=== PATIENT | female | born 1965 | race Caucasian/White ===

== ENCOUNTER 2016-10-23 12:48 | Inpatient (IN) | payer SELFPAY ==
[2016-10-23] MEDS ORDERED: Ondansetron INJ* 2 MG/ML VIAL IV ONE (16:47)
[2016-10-23] MEDS ORDERED: Morphine INJ* 4 MG/ML 1 ML SYRINGE IV ONE ×2 (16:47→19:20)
[2016-10-23 17:16] LABS: Hematocrit 34 % (35-47); Hemoglobin 10.6 g/dl (12.0-16.0); Mean Corpuscular HGB Conc 31 g/dl (31-36); Mean Corpuscular Hemoglobin 22 pg (27-31); Mean Corpuscular Volume 70 fL (80-97); Mean Platelet Volume 8 um3 (7.4-10.4); Red Blood Count 4.82 10^6/ul (4.0-5.4); Red Cell Distribution Width 22 % (10.5-15); White Blood Count 10.9 10^3/ul (3.5-10.8)
[2016-10-23 17:17] LABS: Add Diff/Slide Review? Manual Diff Added; Comments Flag Yes
[2016-10-23 17:35] LABS: ALT 8 U/L (7-52); Albumin 3.6 g/dL (3.2-5.2); Alkaline Phosphatase 67 U/L (34-104); BUN/Creatinine Ratio 15.6 (8-20); Blood Urea Nitrogen 10 mg/dL (6-24); C Reactive Protein < 1.00 mg/L (< 5.00); CO2 Carbon Dioxide 25 mmol/L (22-32); Chloride 104 mmol/L (101-111); EGFR African American 126.3 (>60); EGFR Non-African American 98.2 (>60); Globulin 3.5 g/dL (2-4); Glucose 91 mg/dL (70-100); Lipase 49 U/L (11.0-82.0); Sodium 136 mmol/L (133-145); Total Protein 7.1 g/dL (6.4-8.9)
[2016-10-23 17:36] LABS: Troponin I 0.01 ng/mL (<0.04)
[2016-10-23 17:40] LABS: Anion Gap 7 mmol/L (2-11)
[2016-10-23] MEDS ORDERED: Iodixanol* (CONTRAST) 320 MG/ML 100 ML SDV IV ONE (17:42)
--- NOTE | 2016-10-23 18:55 | RAD ---
CLINICAL HISTORY: Abdominal pain x1 week. Relevant surgical history includes cholecystectomy, hysterectomy and partial nephrectomy. COMPARISON: None TECHNIQUE: Contrast enhanced CT examination of the abdomen and pelvis from the lung bases through the initial tuberosities. The patient received 80 mL Visipaque 320 intravenously prior to imaging.The patient received oral contrast as well prior to imaging. FINDINGS: VISUALIZED LUNG BASES: The visualized lung bases are grossly clear. There is no pleural effusion. ABDOMEN AND PELVIS: The liver, spleen and adrenal glands are grossly normal in appearance. The pancreatic duct is prominent but not pathologically dilated. The pancreas is otherwise normal in attenuation. The gallbladder is surgically absent with clips in the gallbladder fossa. The kidneys are normal in appearance without focal mass, calcification or signs of hydronephrosis. Aside from a small amount of cortical irregularity along the posterior mid level margin of the left kidney (coronal image 55 was (there is no evidence of nephrectomy. Surgical material adjacent to the gastric fundus is consistent with the patient's reported history of gastric bypass surgery. There is no leakage of oral contrast into the lesser omentum. Neural contrast has progressed as far as the proximal small bowel. There are loops of small bowel that are top normal in diameter measuring up to 3 cm. (Axial image 68). More distally the loops of bowel are fluid-filled. The gas and stool-filled colon is unremarkable. There is contrast in the rectum, presumably from prior oral contrast administration in the recent past. There is no gross retroperitoneal or mesenteric lymphadenopathy. The uterus is surgically absent. The abdominal aorta and iliac arteries are normal in course and diameter. Degenerative changes include multilevel loss of intervertebral disc height involving the lower thoracic and lumbar spine.There are no sinister bone lesions. IMPRESSION: 1. Top normal dilated loops of small bowel at the low midline abdomen could be seen in the setting of ileus versus partial small bowel obstruction. A definite transition point is not identified. 2. There is no definite leak of oral contrast. If there is suspicion for anastomotic leak then this is better evaluated with gastroesophageal. 3. Contrast seen in the rectum is relatively is from prior recent imaging. Please correlate to the patient's medical history. 4. Additional chronic, degenerative and iatrogenic findings described in the body the report.
[2016-10-23 18:58] LABS: Immature Granulocytes 6 % (0-9); Microcytosis 1+; Neutrophil % 70 % (38-83)
[2016-10-23 18:59] LABS: Hypochromasia 2+
[2016-10-23 19:01] LABS: Add Path Review? YES
[2016-10-23] MEDS ORDERED: Aspirin Low Dose CHEW TAB* 81 MG PO ONE (19:24)
[2016-10-23] MEDS ORDERED: Pantoprazole IV* 40 MG IV ONE (20:07)
[2016-10-23] MEDS ORDERED: Sucralfate TAB* 1 GM PO ONE (20:07)
--- NOTE | 2016-10-23 21:23 | RAD ---
INDICATION: Abdominal pain x1 week COMPARISON: CT of the abdomen and pelvis from the same date TECHNIQUE: 2 views the abdomen were obtained. FINDINGS: There is contrast seen in the distal portion of the colon and rectum as well as contrast in the distal small bowel and cecum. Similar to the previous CT examination, there is gas-filled dilated loops of small bowel measuring 3.2 cm in diameter in the low midline abdomen. Standing images do not reveal any free peritoneal gas beneath the diaphragm. Excreted contrast from the patient's recent CT examination is seen in the collecting system and urinary bladder. IMPRESSION: AIR-FILLED DILATED LOOPS OF SMALL BOWEL TO 3.2 CM IN DIAMETER DESCRIBED ABOVE.
[2016-10-23] MEDS: NS 0.9% 1000 ML* 1,000 ML IV SCH (22:39)
[2016-10-23] MEDS: KCL 20 MEQ/100 ML IVPREMIX* 20 MEQ/100 ML BAG IV SCH (22:45)
[2016-10-23] MEDS: Morphine INJ* 4 MG/ML 1 ML SYRINGE IV PRN (23:06)
--- NOTE | 2016-10-24 00:58 | HP ---
CC: Dr. Saldivar * [facility] MEDICINE HISTORY AND PHYSICAL: DATE OF ADMISSION: 10/23/16 PRIMARY CARE PHYSICIAN: Dr. Saldivar. ATTENDING PHYSICIAN: Meche García MD * (DICTATED BY TOSHIA MAXWELL NP) CHIEF COMPLAINT: Abdominal pain. HISTORY OF PRESENT ILLNESS: Ms. Zaldivar is a 51-year-old female with a history of multiple abdominal surgeries including cholecystectomy, hysterectomy, partial nephrectomy for kidney cancer, gastric bypass and two C-sections, who presented to the hospital today with concern for abdominal pain. Ms. Zaldivar states that she began to have some pain in her left upper quadrant radiating into her stomach aproximately a month ago. The pain was not very severe at that point; however, over the past week to 10 days, she again developed this pain and it is now much more severe. Today, the pain was quite intense and was associated with nausea, vomiting, and diarrhea, and therefore she decided to come to the emergency room for evaluation. She denies any fever, chills, cough , chest pain, shortness of breath. Her last episode of nausea with vomiting was this morning and her last episode of diarrhea was at noon today. In the emergency room, Ms. Zaldivar had a white blood cell count that was essentially normal at 10.9. Her bands are elevated at 6. Potassium is slightly low at 3.1. Troponin is 0.01. She did go on for an abdomen and pelvis CT, which is read as follows: "Top normal dilated loops of small bowel at the low midline abdomen could be seen in the setting of ileus versus partial small bowel obstruction. A definite transition point is not identified. There is no definite leak of oral contrast. There is suspicion for anastomotic leak, this is verified with gastroesophageal. Contrast seen in the rectum was relatively prior to recent imaging. Please correlate to patient's medical history." Patient states that her last CT scan of the abdomen was likely about a month ago but she believes that there was no contrast used at that time. PAST MEDICAL HISTORY: Cholecystectomy, hysterectomy, partial nephrectomy due to kidney cancer, gastric bypass surgery, history of two C-sections, tonsillectomy. Patient reports that she normally seeks medical care at [facility] in [place]. MEDICATIONS: Pepto-Bismol p.r.n. ALLERGIES: To SULFA. FAMILY HISTORY: The patient reports her mother related to colon cancer and father related to Alzheimer's disease. SOCIAL HISTORY: The patient is a current smoker. She smokes about 5 to 6 cigarettes per day over the past week as she has not been feeling well. No report of alcohol or drug use. She lives with her , who is the healthcare proxy. REVIEW OF SYSTEMS: A 14-point review of systems was completed with Ms. Zaldivar and all those not mentioned above were negative. PHYSICAL EXAMINATION GENERAL: Ms. Zaldivar is sitting in the bed. She is in no acute distress. VITAL SIGNS: Temperature 99, heart rate 73, respiratory rate 16, O2 saturation 97% on room air, blood pressure 142/67. LUNGS: Clear to auscultation bilaterally with no accessory muscle use and good aeration. HEART: S1, S2. No murmur, rub, or gallop, and regular. ABDOMEN: Soft, nontender, with bowel sounds positive x4. EXTREMITIES: No cyanosis or edema. NEURO: She is alert, she is oriented x3. She moves all extremities equally. There is no facial asymmetry or focal weakness. Extraocular movements are intact. SKIN: Intact. DIAGNOSTIC STUDIES/LAB DATA: White blood cell count 10.9, hemoglobin 10.6, hematocrit 34, platelet count 361. Sodium 136, potassium 3.1, chloride 104, serum bicarbonate 25, BUN 10, creatinine 0.64, glucose 91. Abdomen and pelvis CT is as read per above in the HPI and EKG shows sinus rhythm with a heart rate in the 70s and no evidence of ischemia. ASSESSMENT AND PLAN: Ms. Zaldivar is a 51-year-old female with multiple past surgeries on the abdomen including cholecystectomy, hysterectomy, and partial nephrectomy for kidney cancer, gastric bypass, and . Our plans are for observation in the hospital overnight for the followin. Abdominal pain: I suspect that perhaps her abdominal pain is related to an ileus versus early partial small bowel obstruction. I do not see evidence of an alternate process to explain her symtoms. Her LFTs are normal. Her CRP and WBC are normal. Plans for her to have ice chips overnight and we will repeat x -ray of the abdomen in the morning. She is to be encouraged to ambulate frequently on the unit to encourage bowel motility. She will have pain medications p.r.n. 2. Hypokalemia. Plan to replete and recheck in the a.m. 3. DVT prophylaxis. With early mobility. 4. Disposition: To medical floor. TIME SPENT: Approximately 60 minutes was spent on the admission of this patient , more than half the time was spent with the patient at the bedside reviewing the events leading up to this hospitalization, performing the physical examination, and reviewing the plan of care. TOSHIA MAXWELL NP [id number]/[facility] #: [id number] ARMIDA
[2016-10-24] MEDS: KCL 20 MEQ/100 ML IVPREMIX* 20 MEQ/100 ML BAG IV SCH (01:05)
[2016-10-24] MEDS: Ondansetron INJ* 2 MG/ML VIAL IV PRN ×3 (02:41→18:12)
[2016-10-24] MEDS: Morphine INJ* 4 MG/ML 1 ML SYRINGE IV PRN ×5 (02:58→22:42)
[2016-10-24 06:10] LABS: Hematocrit 30 % (35-47); Hemoglobin 9.3 g/dl (12.0-16.0); Mean Corpuscular HGB Conc 31 g/dl (31-36); Mean Corpuscular Hemoglobin 22 pg (27-31); Mean Platelet Volume 8 um3 (7.4-10.4); Red Blood Count 4.22 10^6/ul (4.0-5.4); Red Cell Distribution Width 22 % (10.5-15); White Blood Count 7.7 10^3/ul (3.5-10.8)
[2016-10-24 06:22] LABS: Comments Flag Yes; Mean Corpuscular Volume 70 fL (80-97)
[2016-10-24 06:28] LABS: Anion Gap 3 mmol/L (2-11); BUN/Creatinine Ratio 17.2 (8-20); Blood Urea Nitrogen 11 mg/dL (6-24); CO2 Carbon Dioxide 27 mmol/L (22-32); Calcium 8.5 mg/dL (8.6-10.3); Chloride 106 mmol/L (101-111); EGFR African American 126.3 (>60); EGFR Non-African American 98.2 (>60); Glucose 86 mg/dL (70-100); Potassium 3.5 mmol/L (3.5-5.0); Sodium 136 mmol/L (133-145)
[2016-10-24] MEDS: Pantoprazole IV* 40 MG IV SCH (07:23)
--- NOTE | 2016-10-24 08:05 | RAD ---
Indication: Abdominal pain with clinical concern for small bowel obstruction. Post cholecystectomy, partial LEFT nephrectomy, gastric bypass, hysterectomy. Comparison: October 23, [address] Technique: Supine view of the abdomen. Report: No persistent dilated small bowel loops evident. Further distal propagation of the enteric contrast entirely located within the colon. Negative for colonic dilatation or other radiographic abnormality. Suture lines at the LEFT upper quadrant corresponding with history of gastric bypass. Surgical clips at the gallbladder fossa and RIGHT lower quadrant. Interval clearing of pyelographic phase contrast from the intrarenal collecting systems. Persistent pyelographic phase contrast in the largely decompressed urinary bladder. No suspicious calcifications or mass effect. IMPRESSION: Negative for bowel obstruction. No acute abdominal pelvic pathologic process evident.
[2016-10-24 09:18] LABS: Urine Bilirubin Negative (Negative); Urine Glucose Negative (Negative); Urine Nitrite Negative (Negative)
[2016-10-24 09:25] LABS: Urine Bacteria 1+ (Absent)
--- NOTE | 2016-10-24 10:04 | PN ---
Subjective Date of Service: 10/24/16 Interval History: Patient seen and examined at bedside. She reports mild improvement in abd pain but persistent nausea. Last BM was yesterday morning, states it was diarrhea. Patient reports last normal BM was 2 days. Abdominal pain located in the mid abdomen and radiates to back, intermittent. Denies CP, SOB. Wants to try clear liquids. Denies fever/chills. Family History: Unchanged from Admission Social History: Unchanged from Admission Past Medical History: Unchanged from Admission Objective Active Medications: Sodium Chloride (Ns 0.9% 1000 Ml*) 1,000 mls @ 75 mls/hr IV PER RATE [facility] Last Admin: 10/23/16 22:39 Dose: 75 mls/hr Morphine Sulfate (Morphine Inj (Syringe)*) 4 mg IV Q4H PRN PRN Reason: PAIN Last Admin: 10/24/16 07:23 Dose: 4 mg Ondansetron HCl (Zofran Inj*) 4 mg IV Q4H PRN PRN Reason: NAUSEA Last Admin: 10/24/16 02:41 Dose: 4 mg Pantoprazole Sodium (Protonix Iv*) 40 mg IV Q24H [facility] Last Admin: 10/24/16 07:23 Dose: 40 mg Vital Signs 10/23/16 10/23/16 10/23/16 21:00 22:10 23:06 Temperature 98.1 F Pulse Rate 66 68 Respiratory 18 16 Rate Blood Pressure 143/74 120/72 (mmHg) O2 Sat by Pulse 95 98 Oximetry 10/24/16 10/24/16 10/24/16 00:06 02:57 02:58 Temperature 98.1 F Pulse Rate 63 Respiratory 16 16 16 Rate Blood Pressure 126/73 (mmHg) O2 Sat by Pulse 94 Oximetry 10/24/16 10/24/16 10/24/16 03:58 07:23 07:28 Temperature 97.5 F Pulse Rate 66 Respiratory 14 14 18 Rate Blood Pressure 122/75 (mmHg) O2 Sat by Pulse 95 Oximetry 10/24/16 10/24/16 08:00 08:23 Temperature Pulse Rate Respiratory 14 14 Rate Blood Pressure (mmHg) O2 Sat by Pulse Oximetry Oxygen Devices in Use Now: None Appearance: Middle aged female, lying in bed, in NAD Eyes: No Scleral Icterus Ears/Nose/Mouth/Throat: Clear Oropharnyx, Mucous Membranes Moist Neck: NL Appearance and Movements; NL JVP Respiratory: Symmetrical Chest Expansion and Respiratory Effort, Clear to Auscultation Cardiovascular: NL Sounds; No Murmurs; No JVD, RRR Abdominal: - - BS x 4, diffuse tenderness to mid and upper abdomen Extremities: No Edema Neurological: Alert and Oriented x 3 Lines/Tubes/Other Access: Clean, Dry and Intact Peripheral IV Nutrition: Taking PO's Result Diagrams: 10/24/16 05:44 10/24/16 05:45 Assess/Plan/Problems-Billing Assessment: Ms. Zaldivar is a 51 yo female with a PMH of gastric bypass and multiple abdominal surgeries who presents today with abd pain. - Patient Problems (1) Abdominal pain Code(s): R10.9 - UNSPECIFIED ABDOMINAL PAIN Comment: Unclear etiology, previous concern for SBO, though KUB this AM is improved BS present, less concern for ileus (also no identifiable cause for ileus) Patient has hx of gastric bypass, cholecystectomy, hysterectomy, , and partial nephrectomy. Possibility of structural issue given extensive abd surgeries. Surgery consult requested Patient asked for clears, will attempt to advance to clears Continue prn analgesia, anti-emetics (2) Hypokalemia Code(s): E87.6 - HYPOKALEMIA Comment: Resolved Suspect secondary to diarrhea (3) DVT prophylaxis Comment: Encourge early ambulation Status and Disposition: OBV admit.
[2016-10-24 10:37] LABS: C Reactive Protein < 1.00 mg/L (< 5.00); Lipase 48 U/L (11.0-82.0)
[2016-10-24] MEDS: oxyCODONE/Acetamin 5/325 MG* TAB PO PRN ×3 (10:43→20:56)
--- NOTE | 2016-10-24 12:41 | PN ---
Progress Note - Progress Note Date of Service: 10/24/16 Note: Brief Surgery Note (full note dictated; patient seen with and examined by Dr. Bonilla): S: 2-4 wks of progressively worsening upper abd pain w/ assoc N & V and anorexia O: Afeb; VSS Abd: BS+; soft w/ moderate tenderness throughout upper abd, hang LUQ; no peritoneal signs Labs reviewed CT A&P as well as AXR from this a.m. reviewed A: abd pain; poss PUD vs pSBO 2/2 internal hernia P: UGI today; will add carafate to current PPI; poss OR 10/25 for diagnostic laparoscopy w/ Dr. Bonilla
[2016-10-24] MEDS: Sucralfate TAB* 1 GM PO SCH ×3 (13:56→20:56)
--- NOTE | 2016-10-24 14:00 | RAD ---
CPT II Codes: 6045F. Indication: Abdominal pain. Fluoroscopic and radiographic examination of the upper GI tract was performed. 0.8 minutes of fluoroscopy time was used. Esophagus appears normal in anatomy and function. No evidence of stricture is noted. The patient status post gastric bypass surgery. No obstruction is noted. No evidence of ulceration noted. IMPRESSION: Patient status post gastric bypass surgery. No evidence of ulcers or masses are noted in the gastric remnant.
--- NOTE | 2016-10-24 19:21 | CONS ---
CC: Dr. Mo Bradley, [place], [place]. * SURGICAL CONSULTATION NOTE: DATE OF CONSULT: 10/24/16 ATTENDING SURGEON: Dr. Richardson Bonilla. (DICTATED BY JUAN COYNE) PRIMARY CARE PROVIDER: Dr. Bradley [place]. CHIEF COMPLAINT: Abdominal pain HISTORY OF PRESENT ILLNESS: This is a 51-year-old female admitted last evening through the ED with a 2- to 4-week history of gradually progressing upper abdominal pain. She states at first that the pain has been present for a couple of weeks, but then does admit to having been seen in consultation at the [place] [facility] about a month for similar albeit milder symptoms. She states that a CT without oral contrast was performed at that time. She describes pain in the upper mid abdomen radiating to the left upper quadrant to the mid abdomen and through to her back and between her shoulder blades. She describes the pain as stabbing and previously intermittent, but now pretty much constant. There were times when it is exacerbated by eating or drinking but other times not. She notes that the nausea has been present for the past few days and she has had some small amounts of vomiting. Pain at its peak has been between 9 and 10/10 and at present is 7 to 8. Her bowels have been notable for loose watery stools in the past few days though no blood. She has not had any previous episodes of similar pain. She did undergo a laparoscopic gastric bypass about 18 years ago. She has also had other surgeries as noted below. She denies fever or chills. She denies shortness of breath, though pain is exacerbated with deep inspiration. PAST MEDICAL HISTORY: Morbid obesity (she was just below 400 pounds prior to gastric bypass and has since maintained fairly level weight). She has environmental allergy. She has been treated with surgery, radiation therapy, and chemotherapy for endometrial cancer also approximately 18 years ago with no evidence of recurrence. She underwent partial left nephrectomy for renal cell carcinoma about 3 years ago. She denies history of other cardiovascular disease, diabetes, history of bleeding or clotting disorders. PAST SURGICAL HISTORY: As noted laparoscopic Chevy-en-Y gastric bypass, open hysterectomy with bilateral salpingo-oophorectomy for endometrial cancer, laparoscopic cholecystectomy (preceding her bypass), x2, tonsillectomy remotely, partial left nephrectomy. No reported surgical or anesthesia complications. CURRENT MEDICATIONS: 1. Xyzal 5 mg once daily. 2. She had also been using some Tums and/or Pepto-Bismol or other acid blockers in recent weeks, initially with some improvement and more recently without improvement in her acute symptoms. DRUG ALLERGIES: SULFA (hives). FAMILY HISTORY: Notable for colon cancer in her mother and multiple additional family members. There is additional breast cancer history on her father's side. There is no family history of anesthesia problems. SOCIAL HISTORY: The patient is . 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 She is a current smoker, one-half pack for 10 years, and we strongly encouraged her to stop. She denies use of alcohol or other recreational drugs. REVIEW OF SYSTEMS: General: No recent constitutional symptoms or acute illnesses other than described in the HPI. She is not specifically aware of additional weight loss in recent months. She has not had any significant problems with weight regain since her bypass. Of note, she does not see the bariatric program any longer nor does she take any supplements nor has she had regular surveillance lab work. It is mentioned to her that she has what appears to be iron deficiency anemia (microcytic and should have a bariatric profile done in the near future and annually thereafter through her PCP office) . Cardiovascular: No chest pain, palpitations, history of hypertension, OK, angina, or heart murmur. Respiratory: No history of asthma, chronic cough, or shortness of breath. Environmental allergies only. GI: As above per HPI. Colonoscopy done approximately 5 years ago which she states was a normal study with recommended 5-year followup and no significant interval symptoms. : No problems reported. HEALTH AND NUTRITION SPECIALIST: No recent problems reported. Pelvic exam, most recent breast exam and mammogram within the past year and a half reportedly normal. Endocrine: No diabetes or thyroid dysfunction. PHYSICAL EXAM: Height 5 feet 5 inches, weight 145 pounds, BMI 24, temperature 97.5, blood pressure 122/75, pulse 66, respirations 18, room air saturation 95% . General: Well-nourished, well-developed female in no acute distress. She appeared mildly uncomfortable at times lying in bed. Skin: Warm and dry. No suspicious rashes or lesions noted. HEENT: Pupils equal, round, and reactive. EOMs intact. Mild conjunctival pallor. No scleral icterus. Oropharynx. Mucous membranes moist. No intraoral lesions. Neck: No lymphadenopathy, thyromegaly, or masses. Heart: Regular rate and rhythm. No murmur noted. Lungs: Clear to auscultation. No rales or wheezes. Abdomen: Bowel sounds present, though somewhat hypoactive. Well-healed surgical scars. Nondistended, soft with [id number] tenderness in the epigastric region and left upper quadrant but extending to the periumbilical region as well. No peritoneal signs. No rebound. No palpable masses or organomegaly. Genitalia and Rectal: None. Back: No spinous process or CVA tenderness. Extremities: No edema. Dorsalis pedis and posterior tibial pulses are palpable bilaterally. Musculoskeletal: No problems noted. Neuropsych: Grossly intact. DIAGNOSTIC STUDIES/LAB DATA: Of note, CBC showed white blood cell count of 10, 900 with repeat 7700, hemoglobin 10.6 with repeat 9.3, indices show microcytic hypochromic anemia. The P3 is essentially normal on today's exam. Comprehensive profile last evening was essentially normal including the normal lactic acid, normal lipase, and a CRP less than 1. CT scan of the abdomen and pelvis with oral and IV contrast was reviewed as well as the plain films from this morning. There are some dilated small bowel loops present up to a diameter of 3 cm though on today's films contrast is present throughout the colon. There is no free air or extraluminal collections. IMPRESSION: Abdominal pain, rule out peptic ulcer disease. Consideration must also be given for internal hernia after her bypass surgery. She is already on PPI. Sucralfate will be added to her regimen and if the upper GI is unrevealing and she continues having significant pain, consideration will be given to diagnostic laparoscopy. Dr. Bonilla was in to see the patient and examined her. JUAN COYNE [id number]/[facility] #: [id number] I agree with above. 15 years s/p gastric bypass, now with 2 week history of worsening central and LUQ pain. DDx includes marginal ulcer, gasto gastric fistula, and internal hernia. If pt does not improve with PPI and carafate, she will likely need a Dx laparoscopy. I spent 30 mins with pt , over half was spent discussing plan of care. ARMIDA
[2016-10-25] MEDS: oxyCODONE/Acetamin 5/325 MG* TAB PO PRN ×4 (01:41→22:55)
[2016-10-25] MEDS: Morphine INJ* 4 MG/ML 1 ML SYRINGE IV PRN ×6 (02:38→23:27)
[2016-10-25] MEDS: NS 0.9% 1000 ML* 1,000 ML IV SCH ×2 (02:57→21:32)
[2016-10-25] MEDS: Pantoprazole IV* 40 MG IV SCH (07:55)
[2016-10-25] MEDS: Ondansetron INJ* 2 MG/ML VIAL IV PRN (07:55)
[2016-10-25] MEDS: Sucralfate TAB* 1 GM PO SCH ×6 (10:12→21:27)
--- NOTE | 2016-10-25 10:26 | PN ---
Progress Note - Progress Note Date of Service: 10/25/16 SOAP: Subjective: Reports no changes since yesterday. Still has intermittent epigastric pain, but no nausea or vomiting last night. No fever or chills. Objective: Awake and alert, in NAD VSS, afebrile Abdomen soft, non-distended, mild epigastric tenderness. No guarding or rigidity. Bowel sounds normoactive. Assessment: A 51 y/o female with epigastric pain of unclear etiology, s/p lap RYGB 18 yrs ago. Plan: Discussed with Dr. Bonilla, will plan to take patient to OR this afternoon for a diagnostic laparoscopy, possible laparotomy. Patient aware and agrees to plans.
--- NOTE | 2016-10-25 12:43 | PN ---
Progress Note - Progress Note Date of Service: 10/25/16 SOAP: Subjective: This is a 51 yo white female with hx of multiple abdominal surgeries including cholecystectomy, bilateral salpingoophectomy with hysterectomy, partial nephrectomy, multiple C-sections, and tiana-en-Y gastric bypass admitted on for LUQ pain, nausea, vomiting, and diarrhea. States today pain improvement with pain medications and reports pain and nausea to be worse early each morning around 4AM. Last BM was this morning. Pain makes it difficult to breath and can be intermittent or constant at times. Denies vomiting, constipation, changes in urination or stools. Active medications: Sodium Chloride (Ns 0.9% 1000 Ml*) 1,000 mls @ 75 mls/hr IV PER RATE [facility] Last Admin: 10/25/16 02:57 Dose: 75 mls/hr Morphine Sulfate (Morphine Inj (Syringe)*) 4 mg IV Q2H PRN PRN Reason: PAIN Last Admin: 10/25/16 10:18 Dose: 4 mg Ondansetron HCl (Zofran Inj*) 4 mg IV Q4H PRN PRN Reason: NAUSEA Last Admin: 10/25/16 07:55 Dose: 4 mg Oxycodone/Acetaminophen (Percocet 5/325 Tab*) 1 tab PO Q4H PRN PRN Reason: PAIN - MILD TO MODERATE Last Admin: 10/24/16 10:43 Dose: 1 tab Oxycodone/Acetaminophen (Percocet 5/325 Tab*) 2 tab PO Q4H PRN PRN Reason: PAIN - MODERATE TO SEVERE Last Admin: 10/25/16 05:20 Dose: 2 tab Pantoprazole Sodium (Protonix Iv*) 40 mg IV Q24H [facility] Last Admin: 10/25/16 07:55 Dose: 40 mg Sucralfate (Carafate*) 1 gm PO QID [facility] Last Admin: 10/25/16 12:29 Dose: Not Given Allergies Allergy/AdvReac Type Severity Reaction Status Date / Time Sulfa Antibiotics Allergy Hives Verified 10/23/16 16:10 Objective: Vital Signs Temp Pulse Resp BP Pulse Ox 97.6 F 50 18 110/66 99 10/25/16 11:33 10/25/16 11:33 10/25/16 11:33 10/25/16 11:33 10/25/16 11:33 General: This is a 51 yo white female sitting in bed in [facility]. Skin: No areas of ecchymosis, lesions, lumps/bumps. Various abdominal scars and striations from previous surgeries. Heart: RRR, S1 and S2 split, no JVD, no murmurs, rubs, or gallops. Lungs: Chest is symmetric, clear to auscultation throughout. Abdomen: Various scars and striations with loose skin, bowel sounds heard, abdomen is soft and tender in LUQ and epigastric region that radiated between shoulder blades. Extremities: No edema, 2+ PP. WBC 7.7 10^3/ul (3.5-10.8) 10/24/16 05:44 RBC 4.22 10^6/ul (4.0-5.4) 10/24/16 05:44 Hgb 9.3 g/dl (12.0-16.0) L 10/24/16 05:44 Hct 30 % (35-47) L 10/24/16 05:44 MCV 70 fL (80-97) L 10/24/16 05:44 MCH 22 pg (27-31) L 10/24/16 05:44 MCHC 31 g/dl (31-36) 10/24/16 05:44 RDW 22 % (10.5-15) H 10/24/16 05:44 Plt Count 279 10^3/ul (150-450) 10/24/16 05:44 MPV 8 um3 (7.4-10.4) 10/24/16 05:44 Immature Gran % (Auto) 6 % (0-9) 10/23/16 17:00 Neut % (Auto) 61.9 % (38-83) 10/24/16 05:44 Lymph % (Auto) 21.8 % (25-47) L 10/24/16 05:44 [place] % (Auto) 12.6 % (1-9) H 10/24/16 05:44 Eos % (Auto) 2.3 % (0-6) 10/24/16 05:44 Baso % (Auto) 1.4 % (0-2) 10/24/16 05:44 Absolute Neuts (auto) 4.8 10^3/ul (1.5-7.7) 10/24/16 05:44 Absolute Lymphs (auto) 1.7 10^3/ul (1.0-4.8) 10/24/16 05:44 Absolute Monos (auto) 1.0 10^3/ul (0-0.8) H 10/24/16 05:44 Absolute Eos (auto) 0.2 10^3/ul (0-0.6) 10/24/16 05:44 Absolute Basos (auto) 0.1 10^3/ul (0-0.2) 10/24/16 05:44 Absolute Nucleated RBC 0 10^3/ul 10/24/16 05:44 Neutrophils % 70 % (38-83) 10/23/16 17:00 Band Neutrophils % 6 % (0-8) 10/23/16 17:00 Lymphocytes % 14 % (25-47) L 10/23/16 17:00 Monocytes % 10 % (0-13) 10/23/16 17:00 Nucleated RBC % 0 10/24/16 05:44 Normal RBC Morphology Not Reportable 10/23/16 17:00 Hypochromasia 2+ 10/23/16 17:00 Microcytosis 1+ 10/23/16 17:00 Elliptocytes 1+ 10/23/16 17:00 Hem Pathologist Commnt 10/23/16 17:00 Sodium 136 mmol/L (133-145) 10/24/16 05:45 Potassium 3.5 mmol/L (3.5-5.0) 10/24/16 05:45 Chloride 106 mmol/L (101-111) 10/24/16 05:45 Carbon Dioxide 27 mmol/L (22-32) 10/24/16 05:45 Anion Gap 3 mmol/L (2-11) 10/24/16 05:45 BUN 11 mg/dL (6-24) 10/24/16 05:45 Creatinine 0.64 mg/dL (0.51-0.95) 10/24/16 05:45 Est GFR ( Amer) 126.3 (>60) 10/24/16 05:45 Est GFR (Non-Af Amer) 98.2 (>60) 10/24/16 05:45 BUN/Creatinine Ratio 17.2 (8-20) 10/24/16 05:45 Glucose 86 mg/dL (70-100) 10/24/16 05:45 Lactic Acid 0.8 mmol/L (0.5-2.0) 10/23/16 17:00 Calcium 8.5 mg/dL (8.6-10.3) L 10/24/16 05:45 Total Bilirubin 0.30 mg/dL (0.2-1.0) 10/23/16 17:00 AST 11 U/L (13-39) L 10/23/16 19:15 ALT 8 U/L (7-52) 10/23/16 17:00 Alkaline Phosphatase 67 U/L (34-104) 10/23/16 17:00 Troponin I 0.01 ng/mL (<0.04) 10/23/16 17:00 C-Reactive Protein < 1.00 mg/L (< 5.00) 10/24/16 05:45 Total Protein 7.1 g/dL (6.4-8.9) 10/23/16 17:00 Albumin 3.6 g/dL (3.2-5.2) 10/23/16 17:00 Globulin 3.5 g/dL (2-4) 10/23/16 17:00 Albumin/Globulin Ratio 1.0 (1-3) 10/23/16 17:00 Lipase 48 U/L (11.0-82.0) 10/24/16 05:45 Urine Color Yellow 10/24/16 08:59 Urine Appearance Cloudy 10/24/16 08:59 Urine pH 5.0 (5-9) 10/24/16 08:59 Ur Specific [place] 1.048 (1.010-1.030) H 10/24/16 08:59 Urine Protein 2+(100 mg/dl) (Negative) H 10/24/16 08:59 Urine Ketones Trace (Negative) H 10/24/16 08:59 Urine Blood Negative (Negative) 10/24/16 08:59 Urine Nitrate Negative (Negative) 10/24/16 08:59 Urine Bilirubin Negative (Negative) 10/24/16 08:59 Urine Urobilinogen Negative (Negative) 10/24/16 08:59 Ur Leukocyte Esterase Trace (Negative) H 10/24/16 08:59 Urine WBC (Auto) 1+(6-10/hpf) (Absent) H 10/24/16 08:59 Ur Squamous Epith Cells Present (Absent) H 10/24/16 08:59 Urine Bacteria 1+ (Absent) H 10/24/16 08:59 Urine Glucose Negative (Negative) 10/24/16 08:59 Diagnostic results: Abdominal CT: Suspicious for anatomosis leakage. Some evidence of possible SBO or ileus. Abdominal X-ray 10/23: Air filled dilated loops of small bowel to 3.2 cm. Abdominal X-ray 10/24: No SBO Upper GI series: No ulcers or masses. Assessment/Plan: This is a 51 yo white female with hx of multiple abdominal surgeries including cholecystectomy, bilateral salpingoophectomy with hysterectomy, partial nephrectomy, multiple C-sections, and tiana-en-Y gastric bypass with abdominal pain of unknown etiology. 1) Abdominal pain: It is suspected a possible cause is complication from gastric bypass or previous abdominal surgery. Surgical consult with plan for diagnostic laparoscopy. There was previous concern for SBO but newest X-ray does not show any. Remain NPO. Percocet and Morphine for pain PRN. Cont Protonix and Sucralfate. 2) Hypokelemia; Resolved 3) DVT Prophylaxis: Ambulation. 4) Code status: Full code.
--- NOTE | 2016-10-25 13:42 | PN ---
Subjective Date of Service: 10/25/16 Interval History: This is a 51 yo female with a remote h/o gastric bypass, endometrial CA and renal cell carcinoma who presents with c/o epigastric/LUQ abd pain. Patient has had persistent but intermittent pain and nausea with loose stools ~ once daily. Imaging including a CT of the abd/pelvis, KUB and upper GI series has been remarkable. General surgery team plans to take for exploratory laporoscopy later this afternoon. Patient reports her symptoms have not changed overnight. She still has freq abd pain and nausea but no vomiting and just occasional loose stool. Objective Active Medications: Sodium Chloride (Ns 0.9% 1000 Ml*) 1,000 mls @ 75 mls/hr IV PER RATE [facility] Last Admin: 10/25/16 02:57 Dose: 75 mls/hr Morphine Sulfate (Morphine Inj (Syringe)*) 4 mg IV Q2H PRN PRN Reason: PAIN Last Admin: 10/25/16 12:45 Dose: 4 mg Ondansetron HCl (Zofran Inj*) 4 mg IV Q4H PRN PRN Reason: NAUSEA Last Admin: 10/25/16 07:55 Dose: 4 mg Oxycodone/Acetaminophen (Percocet 5/325 Tab*) 1 tab PO Q4H PRN PRN Reason: PAIN - MILD TO MODERATE Last Admin: 10/24/16 10:43 Dose: 1 tab Oxycodone/Acetaminophen (Percocet 5/325 Tab*) 2 tab PO Q4H PRN PRN Reason: PAIN - MODERATE TO SEVERE Last Admin: 10/25/16 05:20 Dose: 2 tab Pantoprazole Sodium (Protonix Iv*) 40 mg IV Q24H [facility] Last Admin: 10/25/16 07:55 Dose: 40 mg Sucralfate (Carafate*) 1 gm PO QID [facility] Last Admin: 10/25/16 12:29 Dose: Not Given Vital Signs: Temp Pulse Resp BP Pulse Ox 97.6 F 50 18 110/66 99 10/25/16 11:33 10/25/16 11:33 10/25/16 12:45 10/25/16 11:33 10/25/16 11:33 Oxygen Devices in Use Now: None Appearance: Mildly ill appearing but in NAD, ambulated back from the bathroom independently Respiratory: Symmetrical Chest Expansion and Respiratory Effort, Clear to Auscultation Cardiovascular: NL Sounds; No Murmurs; No JVD, RRR Abdominal: - - bowel sounds present, epigastric TTP, soft, non-distended Extremities: No Edema Skin: No Rash or Ulcers Neurological: Alert and Oriented x 3 Result Diagrams: 10/24/16 05:44 10/24/16 05:45 Diagnostic Imaging: CT abd/pelvis - borderline dilated loops of SB, contrast noted in the rectum from prior study KUB 10/23- air filled loops of SB measuring up to 3.2 cm KUB 10/24 - NAD Upper GI series - NAD Assess/Plan/Problems-Billing Assessment: Ms. Zaldivar is a 51 yo female with a PMH of gastric bypass and multiple abdominal surgeries who presents with c/o epigastric/LUQ abd pain. - Patient Problems (1) Abdominal pain Comment: Unclear etiology, initial imaging suggested partial obstruction, which has resolved but no significant improvement in symptoms Appreciate surgery consult who plans to perform exploratory laparoscopy this afternoon (2) Hypokalemia Comment: Resolved Suspect secondary to GI loss (3) Status post gastric bypass for obesity Comment: ~18 yrs ago (4) DVT prophylaxis Comment: Regular ambulation, low risk Status and Disposition: Inpatient. Discharge planning pending results from exp lap
--- NOTE | 2016-10-25 14:03 | PN ---
Progress Note - Progress Note Date of Service: 10/25/16 SOAP: Subjective: Pt seen and examined. Pain persists. Some nausea. no vomiting. Objective: af vss pos loose bm abdo: soft/ND, tender on L. voluntary guarding, no rebound UGI reviewed axr; reviewed Assessment: abdo pain not resolved. Not likely sbo, but there is a concern for internal hernia. Plan: Diagnostic laparoscopy, possible laparotomy . R/B/A discussed and pt wishes to proceed. We spoke of the possibility of negative diagnostic laparoscopy and persistent pain. Pt understands this as well as the most likely possible complications. Pre op ABx NPO
[2016-10-25] MEDS ORDERED: ceFAZolin 2 GM PREMIX(*) 2 GM/50 ML BAG IVPB ONE (15:09)
[2016-10-25] MEDS ORDERED: Bupivacaine 0.25% EPI 200,000* 30 ML SDV ONE (15:24)
[2016-10-25] MEDS ORDERED: Methylene Blue 1% (ANTIDOTE)* 10 MG/ML 1 ML SDV VIAL IVPB ONE (15:24)
[2016-10-25] MEDS ORDERED: fentaNYL* 50 MCG/ML 2 ML VIAL (100 MCG VIAL) ONE ×3 (15:41→17:23)
[2016-10-25] MEDS ORDERED: Dexamethasone IV* 4 MG/ML 1 ML (4 MG) ONE (15:42)
[2016-10-25] MEDS ORDERED: Lidocaine 2% PF * 5 ML VIAL ONE (15:42)
[2016-10-25] MEDS ORDERED: Ondansetron INJ* 2 MG/ML VIAL ONE (15:42)
[2016-10-25] MEDS ORDERED: Atracurium* 10 MG/ML 10 ML VIAL ONE (15:42)
[2016-10-25] MEDS ORDERED: Propofol* 10 MG/ML 20 ML BTL IV PUSH ONE (15:42)
[2016-10-25] MEDS ORDERED: DiMENhydriNATE IV* 50 MG/ML VIAL IV PUSH PRN (16:19)
[2016-10-25] MEDS ORDERED: fentaNYL* 50 MCG/ML 2 ML VIAL (100 MCG VIAL) IV PRN (16:19)
[2016-10-25] MEDS ORDERED: HYDROmorphone* 1 MG/ML 1 ML SYR IV PRN (16:19)
--- NOTE | 2016-10-25 17:07 | PN ---
Progress Note - Progress Note Date of Service: 10/25/16 Note: Brief Operative Note: Preop Dx: abdominal pain Postop Dx: same Procedure: Diagnostic laparoscopy Anesthesia: GET Surgeon: Chad Asst: JUAN Shelby; AVTAR Harrell EBL: none Fluids: 750 ml RL specimen: none Findings: small amt free fluid; otherwise negative
[2016-10-25] MEDS ORDERED: Buffered Lidocaine 0.9% SYRIN* 5 ML/SYR SYRINGE ONE (17:13)
[2016-10-26] MEDS: oxyCODONE/Acetamin 5/325 MG* TAB PO PRN ×4 (00:19→15:25)
[2016-10-26] MEDS: Morphine INJ* 4 MG/ML 1 ML SYRINGE IV PRN ×5 (01:57→16:41)
[2016-10-26] MEDS: Ondansetron INJ* 2 MG/ML VIAL IV PRN (06:13)
[2016-10-26] MEDS: Sucralfate TAB* 1 GM PO SCH ×2 (07:37→12:00)
[2016-10-26] MEDS: Pantoprazole IV* 40 MG IV SCH (07:38)
[2016-10-26 08:09] LABS: Hematocrit 29 % (35-47); Hemoglobin 9.1 g/dl (12.0-16.0); Mean Corpuscular HGB Conc 31 g/dl (31-36); Mean Corpuscular Hemoglobin 22 pg (27-31); Mean Platelet Volume 9 um3 (7.4-10.4); Red Blood Count 4.14 10^6/ul (4.0-5.4); Red Cell Distribution Width 21 % (10.5-15); White Blood Count 7.4 10^3/ul (3.5-10.8)
[2016-10-26 08:11] LABS: Comments Flag Yes; Mean Corpuscular Volume 70 fL (80-97)
[2016-10-26 08:30] LABS: Calcium 8.5 mg/dL (8.6-10.3); EGFR Non-African American 130.6 (>60); Potassium 3.9 mmol/L (3.5-5.0)
--- NOTE | 2016-10-26 09:00 | PN ---
Progress Note - Progress Note Date of Service: 10/26/16 SOAP: Subjective: This is a 51 yo white female with hx of multiple abdominal surgeries including cholecystectomy, bilateral salpingoophectomy with hysterectomy, partial nephrectomy, multiple C-sections, and tiana-en-Y gastric bypass admitted on for LUQ pain, nausea, vomiting, and diarrhea. Patient is still symptomatic with nausea early in the morning but denies vomiting. One loose stool each morning with continued intermittent epigastric and LUQ pain that radiates to her back and between her scapula, that is manageable with pain medication. Active medications: Sodium Chloride (Ns 0.9% 1000 Ml*) 1,000 mls @ 75 mls/hr IV PER RATE [facility] Last Admin: 10/25/16 21:32 Dose: 75 mls/hr Morphine Sulfate (Morphine Inj (Syringe)*) 4 mg IV Q2H PRN PRN Reason: PAIN Last Admin: 10/26/16 07:37 Dose: 4 mg Ondansetron HCl (Zofran Inj*) 4 mg IV Q4H PRN PRN Reason: NAUSEA Last Admin: 10/26/16 06:13 Dose: 4 mg Oxycodone/Acetaminophen (Percocet 5/325 Tab*) 1 tab PO Q4H PRN PRN Reason: PAIN - MILD TO MODERATE Last Admin: 10/25/16 22:55 Dose: 1 tab Oxycodone/Acetaminophen (Percocet 5/325 Tab*) 2 tab PO Q4H PRN PRN Reason: PAIN - MODERATE TO SEVERE Last Admin: 10/26/16 06:13 Dose: 2 tab Pantoprazole Sodium (Protonix Iv*) 40 mg IV Q24H [facility] Last Admin: 10/26/16 07:38 Dose: 40 mg Sucralfate (Carafate*) 1 gm PO QID [facility] Last Admin: 10/26/16 07:37 Dose: 1 gm Allergies Allergy/AdvReac Type Severity Reaction Status Date / Time Sulfa Antibiotics Allergy Hives Verified 10/23/16 16:10 Objective: Vital Signs Temp Pulse Resp BP Pulse Ox 98.2 F 61 18 117/53 99 10/26/16 07:44 10/26/16 07:44 10/26/16 08:00 10/26/16 07:44 10/26/16 08:00 General: This is a 51 yo white female sitting in bed in NAD alert and oriented x3. Skin: No areas of ecchymosis, lesions, lumps/bumps. Various abdominal scars and striations from previous surgeries. Heart: RRR, S1 and S2 split, no JVD, no murmurs, rubs, or gallops. Lungs: Chest is symmetric, clear to auscultation throughout. Abdomen: Various scars and striations with loose skin, bowel sounds heard, abdomen is soft and tender in LUQ and epigastric region that radiated between shoulder blades. Extremities: No edema, 2+ PP. WBC 7.4 10^3/ul (3.5-10.8) 10/26/16 07:47 RBC 4.14 10^6/ul (4.0-5.4) 10/26/16 07:47 Hgb 9.1 g/dl (12.0-16.0) L 10/26/16 07:47 Hct 29 % (35-47) L 10/26/16 07:47 MCV 70 fL (80-97) L 10/26/16 07:47 MCH 22 pg (27-31) L 10/26/16 07:47 MCHC 31 g/dl (31-36) 10/26/16 07:47 RDW 21 % (10.5-15) H 10/26/16 07:47 Plt Count 290 10^3/ul (150-450) 10/26/16 07:47 MPV 9 um3 (7.4-10.4) 10/26/16 07:47 Immature Gran % (Auto) 6 % (0-9) 10/23/16 17:00 Neut % (Auto) 84.5 % (38-83) H 10/26/16 07:47 Lymph % (Auto) 10.6 % (25-47) L 10/26/16 07:47 [place] % (Auto) 4.6 % (1-9) 10/26/16 07:47 Eos % (Auto) 0 % (0-6) 10/26/16 07:47 Baso % (Auto) 0.3 % (0-2) 10/26/16 07:47 Absolute Neuts (auto) 6.3 10^3/ul (1.5-7.7) 10/26/16 07:47 Absolute Lymphs (auto) 0.8 10^3/ul (1.0-4.8) L 10/26/16 07:47 Absolute Monos (auto) 0.3 10^3/ul (0-0.8) 10/26/16 07:47 Absolute Eos (auto) 0 10^3/ul (0-0.6) 10/26/16 07:47 Absolute Basos (auto) 0 10^3/ul (0-0.2) 10/26/16 07:47 Absolute Nucleated RBC 0 10^3/ul 10/26/16 07:47 Neutrophils % 70 % (38-83) 10/23/16 17:00 Band Neutrophils % 6 % (0-8) 10/23/16 17:00 Lymphocytes % 14 % (25-47) L 10/23/16 17:00 Monocytes % 10 % (0-13) 10/23/16 17:00 Nucleated RBC % 0 10/26/16 07:47 Normal RBC Morphology Not Reportable 10/23/16 17:00 Hypochromasia 2+ 10/23/16 17:00 Microcytosis 1+ 10/23/16 17:00 Elliptocytes 1+ 10/23/16 17:00 Hem Pathologist Commnt 10/23/16 17:00 Sodium 137 mmol/L (133-145) 10/26/16 07:47 Potassium 3.9 mmol/L (3.5-5.0) 10/26/16 07:47 Chloride 104 mmol/L (101-111) 10/26/16 07:47 Carbon Dioxide 26 mmol/L (22-32) 10/26/16 07:47 Anion Gap 7 mmol/L (2-11) 10/26/16 07:47 BUN 9 mg/dL (6-24) 10/26/16 07:47 Creatinine 0.50 mg/dL (0.51-0.95) L 10/26/16 07:47 Est GFR ( Amer) 168.0 (>60) 10/26/16 07:47 Est GFR (Non-Af Amer) 130.6 (>60) 10/26/16 07:47 BUN/Creatinine Ratio 18.0 (8-20) 10/26/16 07:47 Glucose 106 mg/dL (70-100) H 10/26/16 07:47 Lactic Acid 0.8 mmol/L (0.5-2.0) 10/23/16 17:00 Calcium 8.5 mg/dL (8.6-10.3) L 10/26/16 07:47 Total Bilirubin 0.30 mg/dL (0.2-1.0) 10/23/16 17:00 AST 11 U/L (13-39) L 10/23/16 19:15 ALT 8 U/L (7-52) 10/23/16 17:00 Alkaline Phosphatase 67 U/L (34-104) 10/23/16 17:00 Troponin I 0.01 ng/mL (<0.04) 10/23/16 17:00 C-Reactive Protein < 1.00 mg/L (< 5.00) 10/24/16 05:45 Total Protein 7.1 g/dL (6.4-8.9) 10/23/16 17:00 Albumin 3.6 g/dL (3.2-5.2) 10/23/16 17:00 Globulin 3.5 g/dL (2-4) 10/23/16 17:00 Albumin/Globulin Ratio 1.0 (1-3) 10/23/16 17:00 Lipase 48 U/L (11.0-82.0) 10/24/16 05:45 Urine Color Yellow 10/24/16 08:59 Urine Appearance Cloudy 10/24/16 08:59 Urine pH 5.0 (5-9) 10/24/16 08:59 Ur Specific [place] 1.048 (1.010-1.030) H 10/24/16 08:59 Urine Protein 2+(100 mg/dl) (Negative) H 10/24/16 08:59 Urine Ketones Trace (Negative) H 10/24/16 08:59 Urine Blood Negative (Negative) 10/24/16 08:59 Urine Nitrate Negative (Negative) 10/24/16 08:59 Urine Bilirubin Negative (Negative) 10/24/16 08:59 Urine Urobilinogen Negative (Negative) 10/24/16 08:59 Ur Leukocyte Esterase Trace (Negative) H 10/24/16 08:59 Urine WBC (Auto) 1+(6-10/hpf) (Absent) H 10/24/16 08:59 Ur Squamous Epith Cells Present (Absent) H 10/24/16 08:59 Urine Bacteria 1+ (Absent) H 10/24/16 08:59 Urine Glucose Negative (Negative) 10/24/16 08:59 Diagnostic results: Abdominal CT: Suspicious for anatomosis leakage. Some evidence of possible SBO or ileus. Abdominal X-ray 10/23: Air filled dilated loops of small bowel to 3.2 cm. Abdominal X-ray 10/24: No SBO Upper GI series: No ulcers or masses. Diagnostic laparoscopy: small amount of free fluid, otherwise negative. Assessment/Plan: This is a 51 yo white female with hx of multiple abdominal surgeries including cholecystectomy, bilateral salpingoophectomy with hysterectomy, partial nephrectomy, multiple C-sections, and tiana-en-Y gastric bypass with abdominal pain of unknown etiology. 1) Abdominal pain: It is suspected a possible cause is complication from gastric bypass or previous abdominal surgery. Diagnostic laparoscopy with negative results. Consult GI Remain NPO as plan for possible endoscopy. Percocet and Morphine for pain PRN. Cont Protonix and Sucralfate. 2) Hypokelemia; Resolved 3) DVT Prophylaxis: Ambulation. 4) Code status: Full code.
--- NOTE | 2016-10-26 10:39 | PN ---
Subjective Date of Service: 10/26/16 Interval History: Patient reports no change in abd pain. She continues to have rather persistent , but occasionally more severe abdominal pain associated with increased activity. No further nausea or vomiting. She is very hungry and anxious to advance her diet. No BM today, but one loose one yesterday. She underwent exploratory laparoscopy yesterday which demonstrated a small amount of free fluid, but was otherwise unremarkable. Objective Active Medications: Morphine Sulfate (Morphine Inj (Syringe)*) 4 mg IV Q2H PRN PRN Reason: PAIN Last Admin: 10/26/16 07:37 Dose: 4 mg Ondansetron HCl (Zofran Inj*) 4 mg IV Q4H PRN PRN Reason: NAUSEA Last Admin: 10/26/16 06:13 Dose: 4 mg Oxycodone/Acetaminophen (Percocet 5/325 Tab*) 1 tab PO Q4H PRN PRN Reason: PAIN - MILD TO MODERATE Last Admin: 10/25/16 22:55 Dose: 1 tab Oxycodone/Acetaminophen (Percocet 5/325 Tab*) 2 tab PO Q4H PRN PRN Reason: PAIN - MODERATE TO SEVERE Last Admin: 10/26/16 10:07 Dose: 2 tab Pantoprazole Sodium (Protonix Iv*) 40 mg IV Q24H [facility] Last Admin: 10/26/16 07:38 Dose: 40 mg Sucralfate (Carafate*) 1 gm PO QID [facility] Last Admin: 10/26/16 07:37 Dose: 1 gm Vital Signs: Temp Pulse Resp BP Pulse Ox 98.2 F 61 20 117/53 99 10/26/16 07:44 10/26/16 07:44 10/26/16 10:07 10/26/16 07:44 10/26/16 08:00 Oxygen Devices in Use Now: None Appearance: Well appearing middle aged female in NAD Respiratory: Symmetrical Chest Expansion and Respiratory Effort, Clear to Auscultation Cardiovascular: NL Sounds; No Murmurs; No JVD, RRR Abdominal: - - abd soft, TTP epigastric region Extremities: No Edema Skin: No Rash or Ulcers Neurological: Alert and Oriented x 3 Result Diagrams: 10/26/16 07:47 10/26/16 07:47 Diagnostic Imaging: CT abd/pelvis - borderline dilated loops of SB, contrast noted in the rectum from prior study KUB 7/10- air filled loops of SB measuring up to 3.2 cm KUB 10/24 - NAD Upper GI series - NAD Assess/Plan/Problems-Billing Assessment: Ms. Zaldivar is a 51 yo female with a PMH of gastric bypass and multiple abdominal surgeries who presents with c/o epigastric/LUQ abd pain. - Patient Problems (1) Abdominal pain Comment: Unclear etiology, initial imaging suggested partial obstruction, which has resolved but no significant improvement in symptoms Appreciate surgery consult, no specific finding on exploratory laparoscopy Requested GI consult for possible upper endoscopy Patient is anxious to advance her diet, so we will see how she tolerates soft foods Cont PPI (2) Hypokalemia Comment: Resolved Suspect secondary to GI loss (3) Status post gastric bypass for obesity Comment: ~18 yrs ago (4) DVT prophylaxis Comment: Regular ambulation, low risk Status and Disposition: Inpatient. Pending GI consult
[2016-10-26] MEDS ORDERED: Meperidine SYRINGE* 50 MG/ML ONE (12:42)
[2016-10-26] MEDS ORDERED: Midazolam* 1 MG/ML 10 ML VIAL (10 MG) ONE (12:43)
--- NOTE | 2016-10-26 14:04 | PN ---
Progress Note - Progress Note Date of Service: 10/26/16 Note: Surgery Progress: S: POD #1. Patient just back from Endo w/ report of "huge" jejunal ulcer. Bx taken. Patient a bit drowsy. Overall, feels about the same. Seems glad to have an answer to her pain. Current Medications Morphine Sulfate (Morphine Inj (Syringe)*) 4 mg IV Q2H PRN PRN Reason: PAIN Last Admin: 10/26/16 12:00 Dose: 4 mg Ondansetron HCl (Zofran Inj*) 4 mg IV Q4H PRN PRN Reason: NAUSEA Last Admin: 10/26/16 06:13 Dose: 4 mg Oxycodone/Acetaminophen (Percocet 5/325 Tab*) 1 tab PO Q4H PRN PRN Reason: PAIN - MILD TO MODERATE Last Admin: 10/25/16 22:55 Dose: 1 tab Oxycodone/Acetaminophen (Percocet 5/325 Tab*) 2 tab PO Q4H PRN PRN Reason: PAIN - MODERATE TO SEVERE Last Admin: 10/26/16 10:07 Dose: 2 tab Pantoprazole Sodium (Protonix Iv*) 40 mg IV Q24H [facility] Last Admin: 10/26/16 07:38 Dose: 40 mg Sucralfate (Carafate*) 1 gm PO QID [facility] Last Admin: 10/26/16 12:00 Dose: 1 gm O: Vital Signs - 8 hr 10/26/16 10/26/16 10/26/16 06:13 07:37 07:44 Temperature 98.2 F Pulse Rate 61 Respiratory 20 18 18 Rate Blood Pressure 117/53 (mmHg) O2 Sat by Pulse 99 Oximetry 10/26/16 10/26/16 10/26/16 08:00 08:37 10:07 Temperature Pulse Rate Respiratory 18 17 20 Rate Blood Pressure (mmHg) O2 Sat by Pulse 99 Oximetry 10/26/16 10/26/16 10/26/16 11:33 12:00 13:44 Temperature 97.9 F 98 F Pulse Rate 61 66 Respiratory 18 18 15 Rate Blood Pressure 104/55 99/65 (mmHg) O2 Sat by Pulse 98 100 Oximetry Intake and Output Last 24 Hours 10/24/16 10/25/16 10/26/16 10/27/16 06:59 06:59 06:59 06:59 Intake Total 260 1992 4469 0 Output Total 200 300 200 Balance 260 1792 4169 -200 Weight 145 lb Intake: IV Fluids 160 1002 4069 LR 750 NS (0.9%) 2279 NS 50ML, Cefazolin 2G 50 IVPB 100 Oral 0 990 400 0 Output: Urine 200 300 200 Other: Estimated Void Medium Medium Date of Last Bowel 10/23/16 Movement # Bowel Movements 0 1 0 Estimated Stool Amount Medium # Voids 2 3 1 Heart: reg Lungs: clear Abd: lap sites ok; soft; mild to mod tenderness midepigastrium and LUQ; remainder w/ min tenderness A/P: s/p negative diagnostic laparoscopy; large jejunal ulcer (bx pend) cont PPI/carafate (Dr. Bonilla suggests double dose PPI and cont carafate upon discharge) diet per medicine/GI dispo per medicine/GI (will set up surgical f/u)
[2016-10-26 15:42] VITALS: BP 138/62
[2016-10-26] MEDS ORDERED: Sucralfate SUSP 1 GM/10 ml 10 ML UDC PO SCH (16:00)
--- NOTE | 2016-10-26 16:37 | CONS ---
CC: JUAN Jacques * CONSULTATION REPORT: DATE OF CONSULTATION: 10/26/16 REQUESTING PHYSICIAN: JUAN Jacques. INDICATIONS: Abdominal pain. NARRATIVE: Ms. Zaldivar is a pleasant 51-year-old female, who has been having abdominal pain for the past couple of weeks. It is located in the left upper quadrant. She came to the emergency room, had a CT, which showed dilated loops of bowel, there was concern for small bowel obstruction and she went to the OR for an exploratory laparoscopy, this was unremarkable. She had a CT in the emergency room, which also was unremarkable except for the dilated loops of small bowel. She denies any vomiting, some nausea. She has been having loose stools. She takes Aleve twice per week. There is no blood in her stools. PAST MEDICAL HISTORY: Significant for kidney cancer. PAST SURGICAL HISTORY: Include: 1. Cholecystectomy. 2. Hysterectomy. 3. Partial nephrectomy. 4. Gastric bypass. 5. C-sections. 6. Tonsillectomy. MEDICATIONS: Pepto-Bismol. ALLERGIES: To SULFA. FAMILY HISTORY: Alzheimer's. SOCIAL HISTORY: She is a current smoker, I counseled her against this. REVIEW OF SYSTEMS: A 12 systems were reviewed, other than mentioned in the HPI were unremarkable. PHYSICAL EXAMINATION: Temperature is 98.2, blood pressure is 117/53, pulse is 61. General: Well-appearing female, in no apparent distress. Alert, oriented, pleasant, fluent. HEENT: Mucous membranes are moist without lesions, ulcers, or exudate. Neck is supple. Trachea is midline. Head is normocephalic and atraumatic. Heart: Regular rate and rhythm. Lungs are clear to auscultation. Abdomen: Positive bowel sounds. Soft, nontender and nondistended. No hepatosplenomegaly, masses, rebound, or guarding. Skin: Warm and dry. Numerous abdominal scars. DIAGNOSTIC STUDIES/LAB DATA: Labs of note, white count of 7.4, hemoglobin of 9.1, platelets of 290. BUN and creatinine are normal. LFTs were unremarkable. ASSESSMENT AND PLAN: This is a pleasant 51-year-old female with abdominal pain , who has undergone CT, upper gastrointestinal series, exploratory laparoscopies with no obvious source for her abdominal pain found. Primary team is now requesting an upper endoscopy. I will make arrangement for the upper endoscopy for further evaluation. [id number]/[facility] #: [id number] ARMIDA
[2016-10-26] MEDS ORDERED: Omeprazole CAP* 20 MG PO SCH (21:00)
--- NOTE | 2016-10-27 05:10 | PRO ---
DATE OF PROCEDURE: 10/26/16 - ROOM #411 PROCEDURE: EGD. INDICATION: Abdominal pain. REFERRING PHYSICIAN: Meche García MD MEDICATIONS GIVEN: 25 mg IV Demerol, 8 mg IV Versed. DESCRIPTION OF PROCEDURE: After the EGD procedure including risks, benefits, and alternatives not limited to perforation, surgery, and/or were explained to Mrs. Zaldivar, written consent was then obtained, IV medication was given, and a bite- block was placed between the teeth. An Olympus gastroscope was then inserted into the patient's mouth, advanced down the esophagus, into the stomach, into the distal duodenum. In the esophagus at the GE junction, the Z-line was intact. No erosive esophagitis, stricture, or ring was seen. Scope was advanced through the GE junction into the body of the stomach. She actually had a Chevy-en-Y gastric bypass surgery associated with the pouch, the pouch appeared normal. The scope was advanced through a widely patent gastrojejunal anastomosis. The blind pouch was unremarkable; however, on the efferent limb, there was a very large clean based ulcer. Biopsies were obtained. The scope was then withdrawn from the patient. She tolerated the procedure well and was returned to the hospital room in stable condition. IMPRESSION: 1. Complete upper endoscopy into the jejunum with biopsies. 2. Very large jejunal ulcer just distal to the anastomosis, status post biopsies. 3. She needs to be on a b.i.d. PPI. She should have a repeat EGD in 8 weeks from now to confirm healing. [id number]/[facility] #: [id number] MTDEloisa
--- NOTE | 2016-10-27 08:57 | DS ---
CC: Dr. Hale; Dr. Bonilla * DISCHARGE SUMMARY: DATE OF ADMISSION: 10/25/16 DATE OF DISCHARGE: 10/26/16 PRIMARY CARE PROVIDER: Not listed. CONSULTING BENCH MANAGER: Dr. Hale. CONSULTING SURGEON: Dr. Bonilla. DISCHARGING PROVIDER: JUAN Keating SUPERVISING PHYSICIAN: Dr. Ambar Velazquez * (DICTATED BY JUAN KEATING) PRIMARY DISCHARGE DIAGNOSES: 1. Large peptic ulcer, which appears to be nonbleeding. 2. Hypokalemia - resolved. SECONDARY DISCHARGE DIAGNOSES: 1. Status post gastric bypass. 2. History of renal cell carcinoma, status post nephrectomy. DISCHARGE MEDICATIONS: 1. Zofran 4 mg p.o. q. 6h. as needed for nausea. 2. Protonix 40 mg p.o. b.i.d. 3. Oxycodone/acetaminophen 5/325 one tablet p.o. q.4h. as needed for pain. 4. Pepto-Bismol one dose p.o. q.4h. as needed. HOSPITAL IMAGIN. CT of the abdomen and pelvis, 10/23/16, demonstrates top normal dilated loops of small bowel in the lower midline abdomen, which could be seen in the setting of ileus versus partial small bowel obstruction with no definite transition point identified. No evidence of anastomotic leak. There is contrast seen in the rectum from recent imaging. 2. KUB, 10/23/16, demonstrates air-filled dilated loops of small bowel to 3.2 cm in diameter. 3. KUB, 10/24/16, shows no evidence of bowel obstruction or other acute process. 4. Upper GI series shows no definitive pathology. 5. Exploratory laparoscopy shows a small amount of free fluid, but no definitive pathologic features. 6. Upper endoscopy shows a large broad-based ulceration without active bleeding or evidence of perforation on the ileal portion just distal to her Chevy -en-Y anastomosis. HOSPITAL COURSE: This is a 51-year-old female with a history of Chevy-en-Y approximately 18 years ago, who presented to the emergency department with complaints of abdominal pain. The patient had reported intermittent pain starting nearly a month ago, but it got to the point that it became so severe, she sought care in the emergency room. She had associated nausea, vomiting, and diarrhea but no recent fevers. When she reached the emergency department, her initial labs showed a mild leukocytosis with white blood cell count of 10, 900. Chemistries showed mild hypokalemia, but otherwise unremarkable. She underwent CT of the abdomen and pelvis, which showed mildly dilated loops of small bowel, interpreted as possible ileus versus partial small bowel obstruction. She was evaluated by General Surgery due to her history of Chevy-en -Y, was taken for exploratory laparoscopy specifically looking for evidence of an internal hernia, which was not found. She subsequently underwent upper endoscopy, which did demonstrate a large ulcer consistent with her symptoms. There was no evidence of active bleeding during her hospital stay and no active bleeding noted on endoscopy. The patient had empirically been started on IV PPI therapy even prior to endoscopy and was able to tolerate a soft diet at the time of discharge. DISPOSITION AND FOLLOWUP PLAN: The patient is being discharged to home where she lives with her . She was given instructions to avoid all NSAIDs, limit alcohol intake, and quit smoking. She was instructed to take b.i.d. PPI therapy and also prescribed p.r.n. pain and antiemetic medications as described above. She has followup established with Surgery as well as Gastroenterology. H. pylori testing is pending at the time of discharge. The patient is instructed to maintain a soft, bland diet, avoiding spicy and acidic foods to avoid flaring plain associated with her ulcer. JUAN KEATING [id number]/[facility] #: [id number] ARMIDA
--- NOTE | 2016-10-30 10:29 | ED ---
I, Suraj,Maryjane, scribed for Efrain Bernard MD on 10/23/16 at 1649 . Abdominal Pain/Female - HPI Summary HPI Summary: This 51 y/o female presents to ED for sharp diffuse pain radiating to back since 2 weeks ago. Pain was intermittent at onset and has become constant. Pt decided to visit ED today when pain became persistent. Positive n/v and decreased appetite. Negative fever, chills. Pt is currently on pepto bismol. PMHx includes tonsillitis, cholecystectomy, Kidney and uterine CA s/p partial nephrectomy and hysterectomy, and gastric bypass by Dr. Grace. Plan of care involving CT scan is discussed with pt and present at bedside, and they are agreeable at this moment. - History of Current Complaint Stated Complaint: ABD PAIN Time Seen by Provider: 10/23/16 16:35 Hx Obtained From: Patient, Medical Records Onset/Duration: Lasting Weeks, Still Present Timing: Constant Pain Intensity: 7 Pain Scale Used: 0-10 Numeric Location: Diffuse Radiates: Yes Radiates to: Back Character: Sharp Aggravating Factor(s): Food Alleviating Factor(s): Nothing Associated Signs and Symptoms: Positive: Decreased Appetite, Nausea, Vomiting, Diarrhea Allergies/Adverse Reactions: Allergies Allergy/AdvReac Type Severity Reaction Status Date / Time Sulfa Antibiotics Allergy Hives Verified 10/23/16 16:10 Home Medications: Home Medications Bismuth Subsalicylate [Pepto-Bismol Max Strength] 1 dose PO Q4HR PRN 10/23/16 [ History Confirmed 10/23/16] PMH/Surg Hx/FS Hx/Imm Hx - Cancer History Cancer Type, Location and Year: Uterine and Kidney CA s/p partial nephrectomy and hysterectomy. Infectious Disease History: No Infectious Disease History: Denies: Traveled Outside the [place] in Last 30 Days - Family History Known Family History: Positive: Cardiac Disease - Positive to father who had WA at 40. - Social History Alcohol Use: None Substance Use Type: Reports: None Smoking Status (MU): Light Every Day Tobacco Smoker Review of Systems Negative: Fever, Chills Negative: Erythema Negative: Sore Throat Negative: Chest Pain Negative: Shortness Of Breath, Cough Positive: Abdominal Pain, Vomiting, Diarrhea, Nausea, Other - decreased appetite Negative: dysuria, hematuria Negative: Myalgia, Edema Negative: Rash Neurological: Other - Negative dizziness All Other Systems Reviewed And Are Negative: Yes Physical Exam - Summary Physical Exam Summary: Constitutional: Well-developed, Well-nourished, Alert. (-) Distressed Skin: Warm, Dry HENT: Normocephalic; Atraumatic Eyes: Conjunctiva normal Neck: Musculoskeletal ROM normal neck. (-) JVD, (-) Stridor, (-) Tracheal deviation Cardio: Rhythm regular, rate normal, Heart sounds normal; Intact distal pulses; The pedal pulses are 2+ and symmetric. Radial pulses are 2+ and symmetric. (-) Murmur Pulmonary/Chest wall: Effort normal. (-) Respiratory distress, (-) Wheezes, (-) Rales Abd: Soft, (+) Tendernessat epigastric and LUQ, (-) Distension, (-) Guarding, (- ) Rebound Musculoskeletal: (-) Edema Lymph: (-) Cervical adenopathy Neuro: Alert, Oriented x3 Psych: Mood and affect Normal Triage Information Reviewed: Yes Vital Signs On Initial Exam: Initial Vitals Temp Pulse BP Pulse Ox 99.2 F 93 144/91 99 10/23/16 12:55 10/23/16 12:55 10/23/16 12:55 10/23/16 12:55 Vital Signs Reviewed: Yes - Dawson Coma Scale Coma Scale Total: 15 Diagnostics - Vital Signs Vital Signs Temp Pulse Resp BP Pulse Ox 10/23/16 16:05 99.0 F 84 16 149/81 97 10/23/16 16:00 71 25 149/81 95 10/23/16 15:46 72 99 10/23/16 15:44 135/64 10/23/16 12:55 99.2 F 93 144/91 99 - Laboratory Lab Results: Lab Results 10/23/16 10/23/16 10/23/16 Range/Units 17:00 17:00 17:00 WBC 10.9 H (3.5-10.8) 10^3/ul RBC 4.82 (4.0-5.4) 10^6/ul Hgb 10.6 L (12.0-16.0) g/dl Hct 34 L (35-47) % MCV 70 L (80-97) fL MCH 22 L (27-31) pg MCHC 31 (31-36) g/dl RDW 22 H (10.5-15) % Plt Count 361 (150-450) 10^3/ul MPV 8 (7.4-10.4) um3 Immature Gran % (Auto) 6 (0-9) % Neut % (Auto) (38-83) % Lymph % (Auto) (25-47) % [place] % (Auto) (1-9) % Eos % (Auto) (0-6) % Baso % (Auto) (0-2) % Absolute Neuts (auto) 8.1 H (1.5-7.7) 10^3/ul Absolute Lymphs (auto) 1.5 (1.0-4.8) 10^3/ul Absolute Monos (auto) 1.1 H (0-0.8) 10^3/ul Absolute Eos (auto) Not Reportable Absolute Basos (auto) Not Reportable Absolute Nucleated RBC Not Reportable Neutrophils % 70 (38-83) % Band Neutrophils % 6 (0-8) % Lymphocytes % 14 L (25-47) % Monocytes % 10 (0-13) % Nucleated RBC % Normal RBC Morphology Not Reportable Hypochromasia 2+ Microcytosis 1+ Elliptocytes 1+ Hem Pathologist Commnt Sodium 136 (133-145) mmol/L Potassium TNP Chloride 104 (101-111) mmol/L Carbon Dioxide 25 (22-32) mmol/L Anion Gap 7 (2-11) mmol/L BUN 10 (6-24) mg/dL Creatinine 0.64 (0.51-0.95) mg/dL Est GFR ( Amer) 126.3 (>60) Est GFR (Non-Af Amer) 98.2 (>60) BUN/Creatinine Ratio 15.6 (8-20) Glucose 91 (70-100) mg/dL Lactic Acid 0.8 (0.5-2.0) mmol/L Calcium 9.0 (8.6-10.3) mg/dL Total Bilirubin 0.30 (0.2-1.0) mg/dL AST TNP ALT 8 (7-52) U/L Alkaline Phosphatase 67 (34-104) U/L Troponin I 0.01 (<0.04) ng/mL C-Reactive Protein < 1.00 (< 5.00) mg/L Total Protein 7.1 (6.4-8.9) g/dL Albumin 3.6 (3.2-5.2) g/dL Globulin 3.5 (2-4) g/dL Albumin/Globulin Ratio 1.0 (1-3) Lipase 49 (11.0-82.0) U/L Urine Color Urine Appearance Urine pH (5-9) Ur Specific Wann (1.010-1.030) Urine Protein (Negative) Urine Ketones (Negative) Urine Blood (Negative) Urine Nitrate (Negative) Urine Bilirubin (Negative) Urine Urobilinogen (Negative) Ur Leukocyte Esterase (Negative) Urine WBC (Auto) (Absent) Ur Squamous Epith Cells (Absent) Urine Bacteria (Absent) Urine Glucose (Negative) 10/23/16 10/24/16 10/24/16 Range/Units 19:15 05:44 05:45 WBC 7.7 (3.5-10.8) 10^3/ul RBC 4.22 (4.0-5.4) 10^6/ul Hgb 9.3 L (12.0-16.0) g/dl Hct 30 L (35-47) % MCV 70 L (80-97) fL MCH 22 L (27-31) pg MCHC 31 (31-36) g/dl RDW 22 H (10.5-15) % Plt Count 279 (150-450) 10^3/ul MPV 8 (7.4-10.4) um3 Immature Gran % (Auto) (0-9) % Neut % (Auto) 61.9 (38-83) % Lymph % (Auto) 21.8 L (25-47) % [place] % (Auto) 12.6 H (1-9) % Eos % (Auto) 2.3 (0-6) % Baso % (Auto) 1.4 (0-2) % Absolute Neuts (auto) 4.8 (1.5-7.7) 10^3/ul Absolute Lymphs (auto) 1.7 (1.0-4.8) 10^3/ul Absolute Monos (auto) 1.0 H (0-0.8) 10^3/ul Absolute Eos (auto) 0.2 Absolute Basos (auto) 0.1 Absolute Nucleated RBC 0 Neutrophils % (38-83) % Band Neutrophils % (0-8) % Lymphocytes % (25-47) % Monocytes % (0-13) % Nucleated RBC % 0 Normal RBC Morphology Hypochromasia Microcytosis Elliptocytes Hem Pathologist Commnt Sodium 136 (133-145) mmol/L Potassium 3.1 L 3.5 Chloride 106 (101-111) mmol/L Carbon Dioxide 27 (22-32) mmol/L Anion Gap 3 (2-11) mmol/L BUN 11 (6-24) mg/dL Creatinine 0.64 (0.51-0.95) mg/dL Est GFR ( Amer) 126.3 (>60) Est GFR (Non-Af Amer) 98.2 (>60) BUN/Creatinine Ratio 17.2 (8-20) Glucose 86 (70-100) mg/dL Lactic Acid (0.5-2.0) mmol/L Calcium 8.5 L (8.6-10.3) mg/dL Total Bilirubin (0.2-1.0) mg/dL AST 11 L ALT (7-52) U/L Alkaline Phosphatase (34-104) U/L Troponin I (<0.04) ng/mL C-Reactive Protein < 1.00 (< 5.00) mg/L Total Protein (6.4-8.9) g/dL Albumin (3.2-5.2) g/dL Globulin (2-4) g/dL Albumin/Globulin Ratio (1-3) Lipase 48 (11.0-82.0) U/L Urine Color Urine Appearance Urine pH (5-9) Ur Specific Wann (1.010-1.030) Urine Protein (Negative) Urine Ketones (Negative) Urine Blood (Negative) Urine Nitrate (Negative) Urine Bilirubin (Negative) Urine Urobilinogen (Negative) Ur Leukocyte Esterase (Negative) Urine WBC (Auto) (Absent) Ur Squamous Epith Cells (Absent) Urine Bacteria (Absent) Urine Glucose (Negative) 10/24/16 Range/Units 08:59 WBC (3.5-10.8) 10^3/ul RBC (4.0-5.4) 10^6/ul Hgb (12.0-16.0) g/dl Hct (35-47) % MCV (80-97) fL MCH (27-31) pg MCHC (31-36) g/dl RDW (10.5-15) % Plt Count (150-450) 10^3/ul MPV (7.4-10.4) um3 Immature Gran % (Auto) (0-9) % Neut % (Auto) (38-83) % Lymph % (Auto) (25-47) % [place] % (Auto) (1-9) % Eos % (Auto) (0-6) % Baso % (Auto) (0-2) % Absolute Neuts (auto) (1.5-7.7) 10^3/ul Absolute Lymphs (auto) (1.0-4.8) 10^3/ul Absolute Monos (auto) (0-0.8) 10^3/ul Absolute Eos (auto) Absolute Basos (auto) Absolute Nucleated RBC Neutrophils % (38-83) % Band Neutrophils % (0-8) % Lymphocytes % (25-47) % Monocytes % (0-13) % Nucleated RBC % Normal RBC Morphology Hypochromasia Microcytosis Elliptocytes Hem Pathologist Commnt Sodium (133-145) mmol/L Potassium Chloride (101-111) mmol/L Carbon Dioxide (22-32) mmol/L Anion Gap (2-11) mmol/L BUN (6-24) mg/dL Creatinine (0.51-0.95) mg/dL Est GFR ( Amer) (>60) Est GFR (Non-Af Amer) (>60) BUN/Creatinine Ratio (8-20) Glucose (70-100) mg/dL Lactic Acid (0.5-2.0) mmol/L Calcium (8.6-10.3) mg/dL Total Bilirubin (0.2-1.0) mg/dL AST ALT (7-52) U/L Alkaline Phosphatase (34-104) U/L Troponin I (<0.04) ng/mL C-Reactive Protein (< 5.00) mg/L Total Protein (6.4-8.9) g/dL Albumin (3.2-5.2) g/dL Globulin (2-4) g/dL Albumin/Globulin Ratio (1-3) Lipase (11.0-82.0) U/L Urine Color Yellow Urine Appearance Cloudy Urine pH 5.0 (5-9) Ur Specific Wann 1.048 H (1.010-1.030) Urine Protein 2+(100 mg/dl) H (Negative) Urine Ketones Trace H (Negative) Urine Blood Negative (Negative) Urine Nitrate Negative (Negative) Urine Bilirubin Negative (Negative) Urine Urobilinogen Negative (Negative) Ur Leukocyte Esterase Trace H (Negative) Urine WBC (Auto) 1+(6-10/hpf) H (Absent) Ur Squamous Epith Cells Present H (Absent) Urine Bacteria 1+ H (Absent) Urine Glucose Negative (Negative) Result Diagrams: 10/26/16 07:47 10/26/16 07:47 Lab Statement: Any lab studies that have been ordered have been reviewed, and results considered in the medical decision making process. - CT CT Ab/P CT Interpretation: Positive (See Comments) - 1. Top normal dilated loops of small bowel at the low midline abdomen could be seen in the setting of ileus versus partial small bowel obstruction. A definite transition point is not identified. 2. There is no definite leak of oral contrast. If there is suspicion for anastomotic leak then this is better evaluated with gastroesophageal. 3. Contrast seen in the rectum is relatively is from prior recent imaging. Please correlate to the patient's medical history. 4. Additional chronic, degenerative and iatrogenic findings described in the body the report. CT Interpretation Completed By: Radiologist - EKG 1849 Cardiac Rate: NL - 78 bpm EKG Rhythm: Sinus Rhythm ST Segment: Normal Re-Evaluation - Re-Evaluation First Eval Re-Evaluation Time: 20:04 Change: Unchanged Comment: Epigastric tenderness still persists upon re-examination. Abdominal Pain Fem Course/Dx - Course Course Of Treatment: Consult: Dr. Bonilla at 1999 PM recommends sulcralfate, PPI. also suggested CT evaluation himself. Pt will receive GI workup including endoscopy. Smoking history is risk factor for PUD. Dr. García at 2010 PM accepts admission for CP and GI workup. This 51 y/o female presents to ED for epigastric pain that radiates to back. PMHx includes numerous abd surguries such as nephrectomy, hysterectomy, cholecystomy, and gastric bypass. CT Ab/P indicates: 1. Top normal dilated loops of small bowel at the low midline abdomen could be seen in the setting of ileus versus partial small bowel obstruction. A definite transition point is not identified. 2. There is no definite leak of oral contrast. If there is suspicion for anastomotic leak then this is better evaluated with gastroesophageal. 3. Contrast seen in the rectum is relatively is from prior recent imaging. Please correlate to the patient's medical history. 4. Additional chronic, degenerative and iatrogenic findings described in the body the report. During the course of ED pt has not vomited. No evidence for complete obstruction. Pt tolerated contrast. Dr. Bonilla was consulted, who will evaluated the CT himself, and Dr. García accepts pateint's admission. - Diagnoses Provider Diagnoses: Epigastric pain, History of gastric bypass, Chest pain, unspecified - Provider Notifications Discussed Care Of Patient With: Richardson Bonilla Time Discussed With Above Provider: 20:00 Discharge - Discharge Plan Condition: Stable Disposition: ADMITTED TO [facility] The documentation as recorded by the Suraj villareal Soohyun accurately reflects the service I personally performed and the decisions made by , Efrain Bernard MD.
--- NOTE | 2016-10-31 04:30 | OP ---
CC: [facility]; Dr. Mo Bradley OPERATIVE REPORT: DATE OF OPERATION: 10/25/16 DATE OF : 67 SURGEON: Richardson Bonilla MD. WEEDER THINNER: JUAN Allan. ANESTHESIOLOGIST: Dr. Gibbons. ANESTHESIA: General anesthesia. PRE-OP DIAGNOSIS: Abdominal pain, rule out internal hernia. POST-OP DIAGNOSIS: Abdominal pain. OPERATIVE PROCEDURE: Diagnostic laparoscopy. ESTIMATED BLOOD LOSS: Minimal blood loss. IV FLUIDS: Minimal crystalloid fluid given. SPECIMEN: None. FINDINGS: Normal appearing Chevy-en-Y gastric bypass. INDICATIONS: Ms. Zaldivar is a 51-year-old female who is 15 years status post gastric bypass who pres ented to our institution 2 days prior to surgery with complaints of abdominal pain that had been ivonne oing for close to 4 weeks. She was seen by me and workup included CAT scan as well as an upper GI s tudy. The patient was treated for a differential diagnosis that included marginal ulceration. We d id not see any evidence of this on upper GI and when patient showed no improvement, I recommended di agnostic laparoscopy as part of our differential diagnosis, including internal hernia. I outlined t he details of the procedure, going over the risks, benefits, and alternatives to the patient. I spo ke about the possible complications, which included, but not limited to, bleeding, infection, need f or open procedures, need for bowel resection, need for revision of her Chevy-en-Y gastric bypass. DESCRIPTION OF PROCEDURE: The patient was marked, brought to the operating room, and placed on the operating table in supine position. Preoperative antibiotics were given. Sequential devices were p laced on bilateral lower extremities. General anesthesia was induced. The patient's abdomen was pre pped and draped in a standard surgical fashion and time-out was performed. A right upper quadrant incision was made. This was deepened down to the anterior fascia, which was elevated and a Veress needle was inserted into the abdominal cavity, which was then allowed to insuf flate to a pressure of 15 mmHg. The patient tolerated the insufflation well. Veress needle was rem july and a 5-mm trocar inserted. Laparoscope was then inserted and there was no evidence of injury from the trocar insertion or from the Veress needle. Review of the abdomen showed no evidence of fr ee fluid. There was no evidence of hernia along the anterior abdominal wall. A 5-mm trocar was the n inserted into the periumbilical region and another at the left lower quadrant. Attention was then turned towards the cecum, this was rotated laterally and the terminal ileum was i dentified. This was intact. The small bowel was then run retrograde to the jejunostomy, which appe ared intact and in an appropriate orientation. The biliopancreatic limb of the small bowel was then run retrograde to its positioning as it passed under the transverse mesocolon. There was no abnorm ality at this site. There was no evidence of any opening in the mesentry at the jejunojejunostomy. The Chevy limb was then run retrograde from the jejunojejunostomy to the stomach pouch. This was a very long limb, but did not show any pathology. Stomach was soft. The rest of the stomach was also intact and within normal limits. The case was then completed. The abdomen was allowed to collapse and the trocars were removed under direct vision. The patient was awoken up and transferred to PAC U in stable condition. [id number]/[facility] #: [id number]
== END 2016-10-26 16:55 | disposition home or self-care (01) | DRG 358 ==
LOC: ED 12:48 → MED 20:35 → OBSVTOIN 10-25 11:39
PROVIDERS: ADMIT Pediatrics; ATTEND Hospitalist
PROC: 0WJP4ZZ Inspection of Gastrointestinal Tract, Percutaneous Endoscopic Approach (ICD-10-PCS; principal; 2016-10-25 12:15)
PROC: 0DBA8ZX Excision of Jejunum, Via Natural or Artificial Opening Endoscopic, Diagnostic (ICD-10-PCS; 2016-10-26)
DX: K28.9 Gastrojejunal ulcer, unspecified as acute or chronic, without hemorrhage or perforation (principal); E87.6 Hypokalemia; F17.210 Nicotine dependence, cigarettes, uncomplicated; K21.9 Gastro-esophageal reflux disease without esophagitis; D72.829 Elevated white blood cell count, unspecified; Z90.49 Acquired absence of other specified parts of digestive tract; Z90.710 Acquired absence of both cervix and uterus; Z85.528 Personal history of other malignant neoplasm of kidney; Z98.84 Bariatric surgery status; Z90.5 Acquired absence of kidney; Z88.2 Allergy status to sulfonamides; Z80.0 Family history of malignant neoplasm of digestive organs; Z82.0 Family history of epilepsy and other diseases of the nervous system; Z90.722 Acquired absence of ovaries, bilateral; Z85.42 Personal history of malignant neoplasm of other parts of uterus
CPT/HCPCS: 36415; 74000; 74177; 74246; 80048; 80053; 81003; 81015; 82272; 83605; 83690; 84484; 85025; 85060; 86140; 87086; 88305; 93005; A9270-GY; G0378; J0690; J1100; J2250; J2270; J2405; J2704; J3010; J3480; Q9967